=== PATIENT | male | born 1965 | race Caucasian/White ===

== ENCOUNTER 2022-03-17 14:04 | Inpatient (IN) | payer OTHER ==
[~2022-03-17] VITALS: Ht 182.9 cm; Wt 163.3 kg
[2022-03-17] MEDS ORDERED: Morphine 4mg INJECTION 4 MG/ML INJ IV ONE (14:45)
[2022-03-17] MEDS ORDERED: ACETAMINOPHEN 325 MG TAB PO ONE ×2 (14:45→18:45)
[2022-03-17] MEDS ORDERED: SODIUM CHLORIDE 0.9% 1000ML 1,000 ML IV SCH ×2 (14:45→18:45)
[2022-03-17 15:14] LABS: CLARITY,URINE SL CLOUDY (CLEAR); COLOR,URINE STRAW (YELLOW); KETONES,URINE NEGATIVE (NEGATIVE); LEUKOCYTE ESTERASE ,URINE SMALL (NEGATIVE); NITRITE,URINE POSITIVE (NEGATIVE); PROTEIN,URINE DIPSTICK NEGATIVE (NEGATIVE); URINE UROBILINOGEN 4 mg/dL (0.2 - 1)
[2022-03-17 15:17] LABS: BASOPHILS % 0.3 % (0.0-1.0); EOSINOPHILS % 0.1 % (0.0-6.0); HEMATOCRIT 41.6 % (38.2-49.6); HEMOGLOBIN 14.1 g/dL (14.0-18.0); LYMPHOCYTES % 7.3 % (18.0-39.1); MEAN CORPUSCULAR HEMOGLOBIN 28.7 pg (28-32); MEAN CORPUSCULAR HGB CONC 33.9 g/dL (31-35); MEAN CORPUSCULAR VOLUME 84.6 fL (81-99); MONOCYTES % 7.3 % (4.4-11.3); NEUTROPHILS # (AUTO) 11.2 (2.1-6.9); NEUTROPHILS % 84.5 % (38.7-80.0); PLATELET COUNT 175 x10e3/uL (140-360); RED BLOOD COUNT 4.92 x10e6/uL (4.3-5.7)
[2022-03-17 15:30] LABS: BACTERIA,URINE MODERATE /HPF
[2022-03-17] MEDS ORDERED: Vancomycin IV 1 GM in SODIUM CHLORIDE 0.9% 250ML 250 ML IV ONE (15:30)
[2022-03-17 15:33] LABS: ALBUMIN 3.9 g/dL (3.5-5.0); ALBUMIN/GLOBULIN RATIO 1.2 (0.8-2.0); ANION GAP 15.4 mmol/L (8-16); CALCIUM 9.1 mg/dL (8.4-10.2); CREATININE, SERUM 1.18 mg/dL (0.72-1.25); POTASSIUM 4.4 mmol/L (3.5-5.1)
[2022-03-17] MEDS ORDERED: MELOXICAM15 MG PO (16:09)
[2022-03-17] MEDS ORDERED: CYANOCOBALAMIN IM (16:09)
[2022-03-17] MEDS ORDERED: ARIPIPRAZOLE10 MG PO (16:09)
[2022-03-17] MEDS ORDERED: SERTRALINE HCL100 MG PO (16:09)
[2022-03-17] MEDS ORDERED: OMEPRAZOLE20 MG PO (16:09)
[2022-03-17] MEDS ORDERED: PRAVASTATIN SOD20 MG PO (16:09)
[2022-03-17] MEDS ORDERED: FLOMAX0.4 MG PO (16:09)
[2022-03-17] MEDS ORDERED: IBUPROFEN 600 MG TAB PO STA (17:28)
[2022-03-17] MEDS ORDERED: ACETAMINOPHEN 325 MG TAB ONE (18:50)
[2022-03-17] MEDS ORDERED: ONDANSETRON HCL INJ 2MG/ML 2ML 2 MG/ML VIAL IV PRN (19:00)
[2022-03-17] MEDS ORDERED: Morphine 4mg INJECTION 4 MG/ML INJ IV PRN (19:00)
[2022-03-17] MEDS: SODIUM CHLORIDE 0.9% 1000ML 1,000 ML IV SCH (19:01)
[2022-03-17] MEDS ORDERED: HYDRALAZINE HCL 20 MG/ML VIAL IV PRN (23:15)
[2022-03-17] MEDS ORDERED: ACETAMINOPHEN 325 MG TAB PO PRN (23:15)
[2022-03-17] MEDS ORDERED: TEMAZEPAM 7.5 MG CAP PO PRN (23:15)
[2022-03-17] MEDS ORDERED: POLYETHYLENE GLYCOL 3350 17 GM PACK PO PRN (23:15)
[2022-03-18] VITALS (7 sets, daily range): BP systolic 114–120; BP diastolic 47–73
[2022-03-18] MEDS: SODIUM CHLORIDE 0.9% 1000ML 1,000 ML IV SCH ×3 (01:02→18:21)
[2022-03-18] MEDS ORDERED: SODIUM CHLORIDE 0.9% 250ML 250 ML ONE (01:14)
[2022-03-18 06:13] LABS: BASOPHILS # (AUTO) 0.1 (0.0-0.1); BASOPHILS % 0.3 % (0.0-1.0); EOSINOPHILS % 0.1 % (0.0-6.0); HEMATOCRIT 40.8 % (38.2-49.6); HEMOGLOBIN 13.1 g/dL (14.0-18.0); LYMPHOCYTES # (AUTO) 1.3 (1.0-3.2); LYMPHOCYTES % 6.6 % (18.0-39.1); MEAN CORPUSCULAR HEMOGLOBIN 28.9 pg (28-32); MEAN CORPUSCULAR HGB CONC 32.1 g/dL (31-35); MEAN CORPUSCULAR VOLUME 89.9 fL (81-99); MONOCYTES # (AUTO) 1.7 (0.2-0.8); MONOCYTES % 8.6 % (4.4-11.3); NEUTROPHILS % 83.8 % (38.7-80.0); PLATELET COUNT 153 x10e3/uL (140-360); RED BLOOD COUNT 4.54 x10e6/uL (4.3-5.7); RED CELL DISTRIBUTION WIDTH 13.2 % (11.7-14.4)
[2022-03-18 06:33] LABS: MAGNESIUM 1.8 MG/DL (1.3-2.1); PHOSPHORUS 2.9 MG/DL (2.3-4.7)
[2022-03-18 06:34] LABS: ANION GAP 14.8 mmol/L (8-16); CALCIUM 8.5 mg/dL (8.4-10.2); CREATININE, SERUM 1.02 mg/dL (0.72-1.25); POTASSIUM 3.8 mmol/L (3.5-5.1)
[2022-03-18 06:53] LABS: THYROID STIMULATING HORMONE 1.666 uIU/mL (0.350-4.940)
[2022-03-18 08:36] LABS: LYMPHOCYTES % (MANUAL) 6 % (19-48); MONOCYTES % (MANUAL) 8 % (3.4-9.0); NEUTROPHILS % (MANUAL) 85 % (40-74); PLATELET ESTIMATE ADEQUATE; PLATELET MORPHOLOGY COMMENT NORMAL; RBC MORPHOLOGY COMMENT NORMAL
[2022-03-18] MEDS ORDERED: ALBUTEROL SULF 0.083% NEB SOLN 3 ML NEB NEB PRN (09:00)
[2022-03-18] MEDS ORDERED: TEMAZEPAM 15 MG CAP PO PRN (09:00)
[2022-03-18] MEDS ORDERED: ARIPIPRAZOLE 10 MG PO SCH (09:00)
[2022-03-18] MEDS ORDERED: CYANOCOBALAMIN INJ 1,000 MCG/ML VIAL IM SCH (09:00)
[2022-03-18] MEDS ORDERED: NON-FORMULARY MEDICATION (Meloxicam 15 MG) PO SCH (09:00)
[2022-03-18] MEDS: ARIPIPRAZOLE 5 MG TABLET PO SCH (09:03)
[2022-03-18] MEDS: MELOXICAM 7.5 MG TAB PO SCH (09:03)
[2022-03-18] MEDS: DOCUSATE SODIUM 100 MG CAP PO SCH ×2 (09:03→16:52)
[2022-03-18] MEDS: TAMSULOSIN HCL 0.4 MG CAP PO SCH (09:03)
[2022-03-18] MEDS: PANTOPRAZOLE SOD 40 MG TABEC PO SCH (09:04)
[2022-03-18] MEDS: SERTRALINE HCL 100 MG TAB PO SCH (09:04)
[2022-03-18] MEDS: PRAVASTATIN 20 MG TAB PO SCH (09:04)
[2022-03-19] VITALS (8 sets, daily range): BP systolic 100–128; BP diastolic 46–83
[2022-03-19] MEDS: SODIUM CHLORIDE 0.9% 1000ML 1,000 ML IV SCH ×3 (02:00→18:42)
[2022-03-19 06:05] LABS: BASOPHILS # (AUTO) 0.1 (0.0-0.1); BASOPHILS % 0.4 % (0.0-1.0); EOSINOPHILS # (AUTO) 0.1 (0.0-0.4); EOSINOPHILS % 0.5 % (0.0-6.0); HEMATOCRIT 37.3 % (38.2-49.6); HEMOGLOBIN 11.9 g/dL (14.0-18.0); LYMPHOCYTES # (AUTO) 1.2 (1.0-3.2); LYMPHOCYTES % 9.5 % (18.0-39.1); MEAN CORPUSCULAR HEMOGLOBIN 28.3 pg (28-32); MEAN CORPUSCULAR HGB CONC 31.9 g/dL (31-35); MEAN CORPUSCULAR VOLUME 88.6 fL (81-99); MONOCYTES # (AUTO) 0.8 (0.2-0.8); MONOCYTES % 6.4 % (4.4-11.3); NEUTROPHILS # (AUTO) 10.8 (2.1-6.9); NEUTROPHILS % 82.7 % (38.7-80.0); PLATELET COUNT 137 x10e3/uL (140-360); RED BLOOD COUNT 4.21 x10e6/uL (4.3-5.7)
[2022-03-19 06:36] LABS: ANION GAP 12.6 mmol/L (8-16); CALCIUM 8.2 mg/dL (8.4-10.2); CREATININE, SERUM 0.96 mg/dL (0.72-1.25); POTASSIUM 3.6 mmol/L (3.5-5.1)
[2022-03-19] MEDS: MELOXICAM 7.5 MG TAB PO SCH (09:04)
[2022-03-19] MEDS: PANTOPRAZOLE SOD 40 MG TABEC PO SCH (09:04)
[2022-03-19] MEDS: TAMSULOSIN HCL 0.4 MG CAP PO SCH (09:04)
[2022-03-19] MEDS: FUROSEMIDE INJ 10 MG/ML 4 ML VIAL IV SCH (09:05)
[2022-03-19] MEDS: PRAVASTATIN 20 MG TAB PO SCH (09:05)
[2022-03-19] MEDS: SERTRALINE HCL 100 MG TAB PO SCH (09:05)
[2022-03-19] MEDS: DOCUSATE SODIUM 100 MG CAP PO SCH ×2 (09:05→17:00)
[2022-03-19] MEDS: ARIPIPRAZOLE 5 MG TABLET PO SCH (09:05)
[2022-03-19] MEDS ORDERED: ONDANSETRON HCL 4 MG ORAL DISINTEGRATING TAB PO PRN (14:15)
[2022-03-19] MEDS ORDERED: DOCUSATE SODIUM 100 MG CAP PO PRN (18:45)
[2022-03-20] VITALS (7 sets, daily range): BP systolic 111–127; BP diastolic 51–82
[2022-03-20] MEDS: SODIUM CHLORIDE 0.9% 1000ML 1,000 ML IV SCH (02:27)
[2022-03-20 06:48] LABS: BASOPHILS # (AUTO) 0.1 (0.0-0.1); BASOPHILS % 0.8 % (0.0-1.0); EOSINOPHILS # (AUTO) 0.2 (0.0-0.4); EOSINOPHILS % 2.9 % (0.0-6.0); HEMATOCRIT 35.5 % (38.2-49.6); LYMPHOCYTES # (AUTO) 1.3 (1.0-3.2); LYMPHOCYTES % 16.2 % (18.0-39.1); MEAN CORPUSCULAR HEMOGLOBIN 28.6 pg (28-32); MEAN CORPUSCULAR HGB CONC 33.8 g/dL (31-35); MEAN CORPUSCULAR VOLUME 84.7 fL (81-99); MONOCYTES # (AUTO) 0.5 (0.2-0.8); MONOCYTES % 6.4 % (4.4-11.3); NEUTROPHILS # (AUTO) 5.8 (2.1-6.9); NEUTROPHILS % 73.2 % (38.7-80.0); PLATELET COUNT 153 x10e3/uL (140-360); RED BLOOD COUNT 4.19 x10e6/uL (4.3-5.7); RED CELL DISTRIBUTION WIDTH 13.2 % (11.7-14.4)
[2022-03-20 07:56] LABS: ANION GAP 17.4 mmol/L (8-16); CALCIUM 8.7 mg/dL (8.4-10.2); CREATININE, SERUM 0.93 mg/dL (0.72-1.25); POTASSIUM 3.4 mmol/L (3.5-5.1)
[2022-03-20] MEDS ORDERED: POTASSIUM CHLORIDE 20 MEQ TAB CR PO STA (09:04)
[2022-03-20] MEDS: PANTOPRAZOLE SOD 40 MG TABEC PO SCH (10:00)
[2022-03-20] MEDS: ARIPIPRAZOLE 5 MG TABLET PO SCH (10:00)
[2022-03-20] MEDS: PRAVASTATIN 20 MG TAB PO SCH (10:00)
[2022-03-20] MEDS: SERTRALINE HCL 100 MG TAB PO SCH (10:00)
[2022-03-20] MEDS: TAMSULOSIN HCL 0.4 MG CAP PO SCH (10:00)
[2022-03-20] MEDS: MELOXICAM 7.5 MG TAB PO SCH (10:01)
[2022-03-20] MEDS: FUROSEMIDE INJ 10 MG/ML 4 ML VIAL IV SCH (10:01)
[2022-03-20] MEDS: ENOXAPARIN SOD INJ 40 MG/0.4 ML SYR SC SCH (17:03)
[2022-03-21] VITALS (8 sets, daily range): BP systolic 107–155; BP diastolic 54–88
[2022-03-21 06:16] LABS: BASOPHILS # (AUTO) 0.1 (0.0-0.1); BASOPHILS % 0.9 % (0.0-1.0); EOSINOPHILS # (AUTO) 0.3 (0.0-0.4); EOSINOPHILS % 4.4 % (0.0-6.0); HEMATOCRIT 36.2 % (38.2-49.6); HEMOGLOBIN 12.2 g/dL (14.0-18.0); LYMPHOCYTES # (AUTO) 1.3 (1.0-3.2); LYMPHOCYTES % 19.4 % (18.0-39.1); MEAN CORPUSCULAR HEMOGLOBIN 28.6 pg (28-32); MEAN CORPUSCULAR HGB CONC 33.7 g/dL (31-35); MONOCYTES # (AUTO) 0.5 (0.2-0.8); MONOCYTES % 7.8 % (4.4-11.3); NEUTROPHILS # (AUTO) 4.6 (2.1-6.9); NEUTROPHILS % 66.8 % (38.7-80.0); PLATELET COUNT 181 x10e3/uL (140-360); RED BLOOD COUNT 4.26 x10e6/uL (4.3-5.7); RED CELL DISTRIBUTION WIDTH 13.2 % (11.7-14.4)
[2022-03-21 06:39] LABS: ANION GAP 14.8 mmol/L (8-16); CALCIUM 8.6 mg/dL (8.4-10.2); CREATININE, SERUM 0.98 mg/dL (0.72-1.25); POTASSIUM 3.8 mmol/L (3.5-5.1)
[2022-03-21] MEDS: SERTRALINE HCL 100 MG TAB PO SCH (09:11)
[2022-03-21] MEDS: PRAVASTATIN 20 MG TAB PO SCH (09:11)
[2022-03-21] MEDS: MELOXICAM 7.5 MG TAB PO SCH (09:11)
[2022-03-21] MEDS: FUROSEMIDE INJ 10 MG/ML 4 ML VIAL IV SCH (09:11)
[2022-03-21] MEDS: PANTOPRAZOLE SOD 40 MG TABEC PO SCH (09:11)
[2022-03-21] MEDS: ARIPIPRAZOLE 5 MG TABLET PO SCH (09:11)
[2022-03-21] MEDS: TAMSULOSIN HCL 0.4 MG CAP PO SCH (09:11)
[2022-03-21] MEDS: SODIUM CHLORIDE 0.9% 1000ML 1,000 ML IV SCH (15:42)
[2022-03-21] MEDS: ENOXAPARIN SOD INJ 40 MG/0.4 ML SYR SC SCH (17:02)
[2022-03-22] VITALS: BP 107/52
[2022-03-22 04:00] VITALS: BP 121/59
[2022-03-22 08:10] VITALS: BP 109/55
[2022-03-22 08:28] VITALS: BP 109/55
[2022-03-22] MEDS: FUROSEMIDE INJ 10 MG/ML 4 ML VIAL IV SCH (08:40)
[2022-03-22] MEDS: PANTOPRAZOLE SOD 40 MG TABEC PO SCH (08:41)
[2022-03-22] MEDS: SERTRALINE HCL 100 MG TAB PO SCH (08:41)
[2022-03-22] MEDS: ARIPIPRAZOLE 5 MG TABLET PO SCH (08:41)
[2022-03-22] MEDS: TAMSULOSIN HCL 0.4 MG CAP PO SCH (08:41)
[2022-03-22] MEDS: MELOXICAM 7.5 MG TAB PO SCH (08:41)
[2022-03-22] MEDS: PRAVASTATIN 20 MG TAB PO SCH (08:41)
[2022-03-22] MEDS ORDERED: CEPHALEXIN500 MG PO (10:39)
[2022-03-22] MEDS ORDERED: LASIX40 MG PO (10:40)
[2022-03-22] MEDS: SODIUM CHLORIDE 0.9% 1000ML 1,000 ML IV SCH (11:42)
[2022-03-22 12:02] VITALS: BP 112/58
== END 2022-03-22 14:04 | disposition home or self-care (01) | DRG 871 ==
LOC: ER 14:24 → ERHOLD 17:07 → MED/SURG 03-18 06:21 → MED/SURG2 03-18 22:51
PROVIDERS: ADMIT Internal Medicine; ATTEND Internal Medicine
DX: A41.9 Sepsis, unspecified organism (principal); I50.33 Acute on chronic diastolic (congestive) heart failure; J18.9 Pneumonia, unspecified organism; N39.0 Urinary tract infection, site not specified; Z68.42 Body mass index [BMI] 45.0-49.9, adult; F41.9 Anxiety disorder, unspecified; F32.A Depression, unspecified; K21.9 Gastro-esophageal reflux disease without esophagitis; E66.01 Morbid (severe) obesity due to excess calories; B96.20 Unspecified Escherichia coli [E. coli] as the cause of diseases classified elsewhere; N43.3 Hydrocele, unspecified; N45.3 Epididymo-orchitis; N40.0 Benign prostatic hyperplasia without lower urinary tract symptoms; N40.1 Benign prostatic hyperplasia with lower urinary tract symptoms; R39.14 Feeling of incomplete bladder emptying; D64.9 Anemia, unspecified; Q55.64 Hidden penis; Z20.822 Contact with and (suspected) exposure to COVID-19; G47.33 Obstructive sleep apnea (adult) (pediatric); Z98.84 Bariatric surgery status; I11.0 Hypertensive heart disease with heart failure; E87.6 Hypokalemia; H91.90 Unspecified hearing loss, unspecified ear; Z74.09 Other reduced mobility; E78.5 Hyperlipidemia, unspecified; F17.220 Nicotine dependence, chewing tobacco, uncomplicated
CPT/HCPCS: 0223U; 36415; 71045; 71046; 76870; 80048; 80053; 80061; 81001; 83036; 83605; 83735; 84100; 84443; 85025; 87040; 87086; 87186; 93306; 93976; 94799; 96361; 99251; 99284; J0360; J0456; J0690; J0696; J1650; J1940; J2270; J2543; J3370; J3420; J7030; J7050